=== PATIENT | male | born 1950 | race Caucasian/White ===

== ENCOUNTER 2018-06-25 08:47 | Emergency (ER) | payer MEDICARE ==
[~2018-06-25] VITALS: Ht 180.3 cm; Wt 45.4 kg
[~2018-06-25 08:47] MED LIST: ACTOS30 MG PO; AMARYL2 MG PO; CRESTOR20 MG PO; LANTUS100 UNITS/ SQ; [UNRECOGNIZED DRUG - OTHER] PO; [UNRECOGNIZED DRUG - OTHER] PO; [UNRECOGNIZED DRUG - OTHER] PO; [UNRECOGNIZED DRUG - OTHER] PO; [UNRECOGNIZED DRUG - OTHER] PO; [UNRECOGNIZED DRUG - OTHER] PO; [UNRECOGNIZED DRUG - OTHER] PO
[2018-06-25] MEDS ORDERED: NOREPINEPHRINE 8 MG/D5W 250 ML 250 ML ONE (08:52)
[2018-06-25] MEDS ORDERED: SUCCINYLCHOLINE CHLORIDE 20 MG/ML 10ML VIAL IV STA (09:34)
[2018-06-25] MEDS ORDERED: ETOMIDATE 2 MG/ML 10 ML INJ IV STA (09:34)
[2018-06-25] MEDS ORDERED: VANCOMYCIN 1GM/NS 250 ML 250 ML IV STA (09:37)
[2018-06-25] MEDS ORDERED: PIPER-TAZ 3.375 GM 50 ML IV STA (09:37)
[2018-06-25] MEDS ORDERED: MIDAZOLAM HCL 25 MG in DEXTROSE 5% 50ML 45 ML IV PRN (09:45)
[2018-06-25] MEDS ORDERED: FENTANYL CITRATE INJ 2,000 MCG in SODIUM CHLORIDE 0.9% 250ML 210 ML IV PRN (09:45)
[2018-06-25] MEDS ORDERED: FENTANYL CITRATE/PF 100MCG/2 ML INJ IV ONE (09:45)
[2018-06-25] MEDS ORDERED: MIDAZOLAM HCL 25 MG in SODIUM CHLORIDE 0.9% 45 ML IV PRN (10:00)
--- NOTE | 2018-06-25 10:00 | Diagnostic Imaging Report ---
PROCEDURE: A single AP view of the chest. COMPARISON: None. INDICATIONS: STATUS POST INTUBATION/CENTRAL LINE PLACEMENT FINDINGS: Exam is limited by technique and penetration. Lines/tubes: ET Tube terminates in the expected location of the mid trachea. The clovis is not well visualized. Right IJ central line terminates in the expected location of the upper SVC. Lungs: Bilateral perihilar and interstitial opacities. Patchy opacities at the lung base. Pleura: Technique limits evaluation for pneumothorax. Right costophrenic angle is excluded from the field of view. Bilateral likely skin folds are present, with line markings seen peripheral to these points, therefore less likely pneumothorax. No evidence of pleural effusion. Heart and mediastinum: The cardiomediastinal silhouette is unremarkable. Bones: No acute bony abnormality. IMPRESSION: Lines and tubes as above. Exam limited by portable technique and exposure. No definite pneumothorax, although multiple likely skin folds are present. Right costophrenic angle is excluded from the radiograph. Suggest repeat chest radiograph for further evaluation. Bilateral perihilar and interstitial opacities which likely reflect pulmonary edema. Superimposed aspiration or pneumonia are possible at the lung bases. Dictated by: LONG ESQUIVEL M.D. on 06/25/2018 at 10:08 Electronically approved by: LONG ESQUIVEL M.D. on 06/25/2018 at 10:08
[2018-06-25] MEDS ORDERED: NOREPINEPHRINE INJ 4MG/4ML 8 MG in DEXTROSE 5% 250ML 250 ML IV STA (10:09)
[2018-06-25 10:19] LABS: ALANINE AMINOTRANSFERASE 79 IU/L (0-55); ALBUMIN 1.5 g/dL (3.5-5.0); ALBUMIN/GLOBULIN RATIO 0.7 (0.8-2.0); ALKALINE PHOSPHATASE 152 IU/L (40-150); BLOOD UREA NITROGEN 61 mg/dL (7-26); BUN/CREATININE RATIO 81 (6-25); CALCIUM 9.6 mg/dL (8.4-10.2); CHLORIDE 101 mmol/L (98-107); CREATINE KINASE 203 IU/L (30-200); CREATININE, SERUM 0.75 mg/dL (0.72-1.25); EST GLOMERULAR FILTRATION RATE > 60 ML/MIN (60-); GLUCOSE 94 mg/dL (74-118); LIPASE 82 U/L (8-78); SODIUM 135 mmol/L (136-145)
[2018-06-25 10:20] LABS: BASOPHILS % 1.1 % (0.0-1.0); BILIRUBIN,URINE NEGATIVE (NEGATIVE); CLARITY,URINE SL CLOUDY (CLEAR); COLOR,URINE YELLOW (YELLOW); HEMATOCRIT 12.8 % (38.2-49.6); KETONES,URINE NEGATIVE (NEGATIVE); LEUKOCYTE ESTERASE ,URINE NEGATIVE (NEGATIVE); LYMPHOCYTES # (AUTO) 0.6 (1.0-3.2); LYMPHOCYTES % 66.3 % (18.0-39.1); MEAN CORPUSCULAR HEMOGLOBIN 31.7 pg (28-32); MEAN CORPUSCULAR HGB CONC 29.7 g/dL (31-35); MEAN CORPUSCULAR VOLUME 106.7 fL (81-99); MONOCYTES # (AUTO) 0.1 (0.2-0.8); MONOCYTES % 9.5 % (4.4-11.3); NEUTROPHILS # (AUTO) 0.2 (2.1-6.9); NEUTROPHILS % 23.1 % (38.7-80.0); NITRITE,URINE NEGATIVE (NEGATIVE); PROTEIN,URINE DIPSTICK NEGATIVE (NEGATIVE); URINE UROBILINOGEN 0.2 mg/dL (0.2 - 1)
[2018-06-25 10:25] LABS: HEMOGLOBIN 3.8 g/dL (14.0-18.0)
[2018-06-25 10:26] LABS: CARBON DIOXIDE 8 mmol/L (22-29); PLATELET COUNT 19 x10e3/uL (140-360)
[2018-06-25] MEDS ORDERED: SODIUM CHLORIDE 0.9% 250ML 250 ML IV ONE (10:30)
[2018-06-25 10:33] LABS: BACTERIA,URINE RARE /HPF; WBC,URINE (MAN) 0-5 /HPF (0-5)
[2018-06-25 10:38] LABS: ABG HCO3 10 mmol/L (23-28); ABG PCO2 24 mmHg (41-51); ABG PH 7.21 (7.31-7.41); ABG PO2 89 mmHg (80-105)
[2018-06-25 11:08] LABS: EPITHELIAL CELLS,URINE FEW /LPF
[2018-06-25 11:38] LABS: BLAST CELLS % MANUAL 5; HYPOCHROMASIA MARKED; LYMPHOCYTES % (MANUAL) 70 % (19-48); NEUTROPHILS % (MANUAL) 25 % (40-74); TOXIC GRANULATION SLIGHT
[2018-06-25 11:39] LABS: ANISOCYTOSIS SLIGHT; PLATELET ESTIMATE MARKEDLY DECREASED; PLATELET MORPHOLOGY COMMENT FEW GIANT; RBC MORPHOLOGY COMMENT ABNORMAL
[2018-06-25] MEDS ORDERED: ETOMIDATE 2 MG/ML 10 ML INJ IV ONE (18:18)
[2018-06-25] MEDS ORDERED: SUCCINYLCHOLINE CHLORIDE 20 MG/ML 10ML VIAL ONE (18:18)
--- OUTSIDE RECORDS SUMMARY | 2018-06-30 12:56 | XMS REPORT ---
Author Author [facility] Address Unknown Phone Unavailable Care Team Providers Care General Machine Operator Name Role Phone Fabian REDDY Unavailable Unavailable Problems This patient has no known problems. Allergies, Adverse Reactions, Alerts This patient has no known allergies or adverse reactions. Medications This patient has no known medications. Results Test Description Test Time Test Comments Text Results Atomic Results Result Comments CHEST SINGLE (PORTABLE) 2018-06-25 10:08:00 [place] [address] Patient Name: KECIA MCDANIEL MR #: [id number] : 1950 Age/Sex: 68/M Req #: [id number] Adm Physician: Ordered by: ALETHEA REDDY MD Report #: [id number] Location: ER Room/Bed: Procedure: [id number] DX/CHEST SINGLE (PORTABLE) Exam Date: 06/25/18 Exam Time: 0945 REPORT STATUS: Signed PROCEDURE: A single AP view of the chest. COMPARISON: None. INDICATIONS: STATUS POST INTUBATION/CENTRAL LINE PLACEMENT FINDINGS: Exam is limited by technique and penetration. Lines/tubes: ET Tube terminates in the expected location of the mid trachea. The clovis is not well visualized. Right IJ central line terminates in the expected location of the upper SVC. Lungs: Bilateral perihilar and interstitial opacities. Patchy opacities at the lung base. Pleura: Technique limits evaluation for pneumothorax. Right costophrenic angle is excluded from the field of view. Bilateral likely skin folds are present, with line markings seen peripheral to these points, therefore less likely pneumothorax. No evidence of pleural effusion. Heart and mediastinum: The c ardiomediastinal silhouette is unremarkable. Bones: No acute bony abnormality. IMPRESSION: Lines and tubes as above. Exam limited by portable technique and exposure. No definite pneumothorax, although multiple likely skin folds are present. Right costophrenic angle is excluded from the radiograph. Suggest repeat chest radiograph for further evaluation. Bilateral perihilar and interstitial opacities which likely reflect pulmonary edema. Superimposed aspiration or pneumonia are possible at the lung bases. Dictated by: LONG ESQUIVEL M.D. on 06/25/2018 at 10:08 Electronically approved by: LONG ESQUIVEL M.D. on 06/25/2018 at 10:08 Dictated By: LONG ESQUIVEL MD [id number] Transcribed By: MADIE on 06/25/18 1008 COPY TO: ALETHEA REDDY MD
== END 2018-06-25 17:30 | disposition expired ==
LOC: ER 08:47
DX: J96.01 Acute respiratory failure with hypoxia (principal); R65.21 Severe sepsis with septic shock; R57.1 Hypovolemic shock; I50.9 Heart failure, unspecified; N17.9 Acute kidney failure, unspecified; K72.90 Hepatic failure, unspecified without coma; G37.3 Acute transverse myelitis in demyelinating disease of central nervous system; D61.1 Drug-induced aplastic anemia; C61 Malignant neoplasm of prostate; C22.9 Malignant neoplasm of liver, not specified as primary or secondary; Z92.21 Personal history of antineoplastic chemotherapy
CPT/HCPCS: 31500; 36415; 36556; 71045; 80053; 81001; 82550; 82553; 82805; 83605; 83690; 84484; 85025; 86850; 86900; 86920; 87070; 87186; 87205; 93005; 99285; J0330; J2250; J2543; J3370; J7050; 36600